=== PATIENT | female | born 1995 | race Caucasian/White ===

== ENCOUNTER → 2019-05-15 15:21 | Outpatient (BNVA) | payer SELFPAY | PROVIDERS: PCP Nurse Practitioner; Visit Provider Nurse Practitioner | DX: Z30.011 Encounter for initial prescription of contraceptive pills (principal) | CPT/HCPCS: 84702 ==

== ENCOUNTER → 2019-05-21 16:42 | Outpatient (BNVA) | payer SELFPAY | PROVIDERS: PCP Nurse Practitioner; Visit Provider Nurse Practitioner | DX: Z30.011 Encounter for initial prescription of contraceptive pills (principal) | CPT/HCPCS: 81025 ==

== ENCOUNTER 2024-06-16 15:15 | Emergency (ER) | payer MEDICAID, SELFPAY ==
[2024-06-16 15:22] VITALS: BP 100/57; PULSE 83; TEMP 36.7; O2SAT 100; BMI 25.1
[2024-06-16 15:46] VITALS: BP 102/57; BP 107/61; BP 109/62; PULSE 83; PULSE 84; PULSE 85
--- NOTE | 2024-06-16 15:47 | ECG_ITS ---
[facility] Test Date: 2024-06-16 Pat Name: Sharyn Granger Department: Room: Gender: Female Food Production Manager: : 1995 Requested By: Ally Pisano Order Number: [id number] Reading MD: MICA LANTIGUA Measurements Intervals [place] Rate: 80 P: 24 TX: 139 QRS: 42 QRSD: 90 T: 50 QT: 355 QTc: 411 Interpretive Statements SINUS RHYTHM POSSIBLE RIGHT VENTRICULAR CONDUCTION DELAY [RSR (QR) IN V1/V2] MODERATE T-WAVE ABNORMALITY, CONSIDER ANTERIOR ISCHEMIA [-0.1+ mV T-WAVE IN V3/V4] No previous ECG available for comparison Electronically Signed On 06-18-2024 23:37:04 KEY RINGER by MICA LANTIGUA [email or web address]
[2024-06-16 16:13] LABS: Basophils # 0.1 10^3/uL (0.0-0.1); Basophils % 0.4 %; Eosinophils % 0.2 %; Hematocrit 38.6 % (36-47); Lymphocytes % 12.1 %; Mean Corpuscular HGB Conc 33.4 g/dL (30-55); Mean Corpuscular Hemoglobin 29.5 pg (27-33); Mean Corpuscular Volume 88.3 fl (85-98); Mean Platelet Volume 10.1 fL (7.4-10.4); Monocytes # 1.2 10^3/uL (0.2-0.9); Neutrophils # 13.42 10^3/uL (1.8-7.7); Nucleated Red Blood Cells % 0 %; Platelet Count 353 10^3/cmm (157-399); Red Blood Count 4.37 10^6/uL (3.85-5.65); Red Cell Distribution Width 12.1 % (12.1-15.1)
--- NOTE | 2024-06-16 16:18 | ED_ITS ---
HPI - Syncope 2 General: Chief Complaint: Syncope Stated Complaint: weakness, 11 weeks Time Seen by Provider: 06/16/24 15:39 History of Present Illness: This patient is a presenting at 11 weeks of with a near syncopal episode. She was having a normal day, and had been standing for about 5 minutes talking with family - when she became pale and felt like she was going to pass out. She sat down in a chair and did not fully pass out, but continued to feel like she was going to pass out for about 5 minutes and then it gradually went away. She still feels kind of weak. She has been feeling lightheaded with standing for about the past week or so. She has not had problems like this with her previous pregnancies. No vaginal bleeding or discharge. No abdominal pain. She has not had any urinary symptoms. She has seen her OB and has had an ultrasound showing an IUP. She had a few weeks of morning sickness and wasn't able to eat much but that has passed and she is eating and drinking okay now. She denies any medical history. No complications with prior pregnancies. Related Data Home Medications ?Medication ?Instructions ?Recorded ?Confirmed ondansetron HCl 8 mg tablet 8 mg PO Q8H PRN Nausea And Vomiting 06/16/24 06/16/24 vitamin with calcium 1 tab PO DAILY 06/16/24 06/16/24 no.72-iron 27 mg-folic acid 1 mg tablet (WesTab Plus) promethazine 25 mg tablet 25 mg PO Q6H PRN Nausea And 06/16/24 06/16/24 Vomiting Allergies Allergy/AdvReac Type Severity Reaction Status Date / Time No Known Allergies Allergy Verified 06/16/24 15:27 PFSH ED 2 PFSH: Social History Smoking and tobacco/nicotine status: never used tobacco/nicotine Second hand smoke exposure: No Alcohol intake: never Substance/Drug Use: never Female Reproductive History: Spontaneous abortions: No Physical Exam 2 Const: COMMON NORMALS: no acute distress, patient oriented x3, no limitations and alert GENERAL APPEARANCE: cooperative and comfortable HENMT: HEAD & SCALP: normal to inspection FACE & SINUS: normal facial exam Eye: GENERAL EYE: appearance normal, both eyes and all related structures Neck/C-Spine: COMMON NORMALS: supple, no meningeal signs and no JVD Chest: COMMONS NORMALS: normal inspection of the chest Resp: COMMON NORMALS: normal respiratory effort, No use of accessory muscles and clear to auscultation bilaterally AUSCULTATION: clear to auscultation bilaterally Cardio: COMMON NORMALS: no JVD, regular rate, regular rhythm and No murmurs present (Cardio) RATE: regular rate RHYTHM: regular rhythm GI: COMMON NORMALS: Normal to inspection, nondistended, normoactive bowel sounds present, Soft to palpation and non-tender INSPECTION: Yes normal to inspection AUSCULTATION: Yes normoactive bowel sounds PALPATION: Yes Soft to palpation Back/Pelvis: COMMON NORMALS: thoracic and lumbar spine normal to inspection Extremity: COMMON NORMALS: normal to inspection Neuro: COMMON NORMALS: patient oriented x3, moves all extremities, no focal motor deficits and no sensory deficits noted SENSORIUM/ORIENTATION: Yes alert MENINGEAL SIGNS: Yes no meningeal signs Psych: COMMON NORMALS: mental status grossly normal, cooperative and normal affect Skin: COMMON NORMALS: no rashes or lesions noted and turgor normal GENERAL SKIN EXAM: no rashes or lesions noted and turgor normal Course 2 Vital Signs: Vital signs: Vital Signs Temperature 98.0 F 06/16/24 15:22 Pulse Rate 89 06/16/24 17:10 Respiratory Rate 16 06/16/24 17:10 Blood Pressure 96/64 06/16/24 17:10 Pulse Oximetry 92 06/16/24 17:10 Oxygen Delivery Me thod Room Air 06/16/24 15:22 MDM - Syncope Medical Decision Making Normal exam - normal EKG. Labs pending. Orthostatics pending. Lab Data 06/16/24 16:05 06/16/24 16:05 Laboratory Results WBC 16.80 10^3/uL (3.29-11.43) H 06/16/24 16:05 RBC 4.37 10^6/uL (3.85-5.65) 06/16/24 16:05 Hgb 12.90 g/dL (11.27-16.99) 06/16/24 16:05 Hct 38.6 % (36-47) 06/16/24 16:05 MCV 88.3 fl (85-98) 06/16/24 16:05 MCH 29.5 pg (27-33) 06/16/24 16:05 MCHC 33.4 g/dL (30-55) 06/16/24 16:05 RDW 12.1 % (12.1-15.1) 06/16/24 16:05 Plt Count 353 10^3/cmm (157-399) 06/16/24 16:05 MPV 10.1 fL (7.4-10.4) 06/16/24 16:05 Neut % (Auto) 80.0 % 06/16/24 16:05 Lymph % (Auto) 12.1 % 06/16/24 16:05 [place] % (Auto) 7.0 % 06/16/24 16:05 Eos % (Auto) 0.2 % 06/16/24 16:05 Baso % (Auto) 0.4 % 06/16/24 16:05 Neut # (Auto) 13.42 10^3/uL (1.8-7.7) H 06/16/24 16:05 Lymph # (Auto) 2.0 10^3/uL (0.8-4.8) 06/16/24 16:05 [place] # (Auto) 1.2 10^3/uL (0.2-0.9) H 06/16/24 16:05 Eos # (Auto) 0.0 10^3/uL (0.0-0.8) 06/16/24 16:05 Baso # (Auto) 0.1 10^3/uL (0.0-0.1) 06/16/24 16:05 Nucleated RBC % (auto) 0 % 06/16/24 16:05 Nucleated RBCs # 0.0 /100WBC 06/16/24 16:05 Sodium 131 mmol/L (136-145) L 06/16/24 16:05 Potassium 3.5 mmol/L (3.5-5.1) 06/16/24 16:05 Chloride 100 mmol/L (98-107) 06/16/24 16:05 Carbon Dioxide 20 mmol/L (22-29) L 06/16/24 16:05 Anion Gap 14.5 (5-19) 06/16/24 16:05 BUN 7 mg/dL (6-20) 06/16/24 16:05 Creatinine 0.5 mg/dL (0.5-0.9) 06/16/24 16:05 GFR Calculation 146.9 mL/min (90-130) H 06/16/24 16:05 Glucose 101 mg/dL (65-115) 06/16/24 16:05 Calculated Osmolality 270 mOsm/kg (285-295) L 06/16/24 16:05 Calcium 8.9 mg/dL (8.5-10.5) 06/16/24 16:05 Total Bilirubin 0.3 mg/dL (0.15-1.2) 06/16/24 16:05 AST 11 U/L (0-32) 06/16/24 16:05 ALT 7 U/L (0-33) 06/16/24 16:05 Alkaline Phosphatase 81 U/L (35-105) 06/16/24 16:05 Total Protein 7.3 g/dL (6.6-8.7) 06/16/24 16:05 Albumin 3.7 g/dL (3.5-5.2) 06/16/24 16:05 Globulin 3.6 g/dL (1.3-4.6) 06/16/24 16:05 Ser , Semi-Qnt 83557.00 mIU/mL 06/16/24 16:05 Urine Color Yellow (Yellow) 06/16/24 16:12 Urine Appearance Clear (CLEAR) 06/16/24 16:12 Urine pH 6.5 (5-7) 06/16/24 16:12 Ur Specific [place] 1.012 (1.005-1.030) 06/16/24 16:12 Urine Protein Trace (Negative) A 06/16/24 16:12 Urine Glucose (UA) Negative (Normal) 06/16/24 16:12 Urine Ketones Trace (Negative) 06/16/24 16:12 Urine Blood Negative (Negative) 06/16/24 16:12 Urine Nitrate Negative (Negative) 06/16/24 16:12 Urine Bilirubin Negative (Negative) 06/16/24 16:12 Urine Urobilinogen 2.0 mg/dL (Negative) H 06/16/24 16:12 Ur Leukocyte Esterase Trace (Negative) A 06/16/24 16:12 Urine RBC 0-4 /hpf (0-2) H 06/16/24 16:12 Urine WBC 5-10 /hpf (0-5) H 06/16/24 16:12 Ur Squamous Epith Cells 0-4 /hpf (0-5) H 06/16/24 16:12 Amorphous Sediment Not Reportable 06/16/24 16:12 Urine Bacteria Trace /hpf (NONE) 06/16/24 16:12 Hyaline Casts 5-10 /lpf H 06/16/24 16:12 No radiology studies performed this visit Discharge Plan Discharge Patient Disposition: Home Clinical Impression: Near syncope, First trimester Condition: Stable Prescriptions: No Action ondansetron HCl 8 mg tablet 8 mg PO Q8H PRN (Reason: Nausea And Vomiting) promethazine 25 mg tablet 25 mg PO Q6H PRN (Reason: Nausea And Vomiting) WesTab Plus 27 mg iron- 1 mg tablet 1 tab PO DAILY Discharge Orders: Discharge ED (Routine); Ordered 06/16/24 Ordered By: Ally Aguiar Referrals: Sofiya Lagunas, MANAGER ROOM [Primary Care Provider] - Discharge Diet: Advance as tolerated Discharge Activity: Limit activity as instructed Patient Instructions: Opioid Safety, Pain Management Activity Restrictions/Additional Instructions: Get up slowly when rising from bed or from a chair. Make sure that you are drinking enough fluids and getting enough good nutrition (protein) in your diet. Follow up with your OB/GYNif symptoms do not improve. Print Language: Maltese Coding Level of Care Code ED Fire Technology Instructor for Jesus Alberto Giordano
[2024-06-16 16:19] LABS: Bilirubin Urine Negative (Negative); Blood Urine Negative (Negative); Glucose Urine UA Negative (Normal); Ketones Urine Trace (Negative); Leukocyte Esterase Urine Trace (Negative); Nitrate Urine Negative (Negative); Protein Urine Trace (Negative); Specific Gravity, Urine 1.012 (1.005-1.030); Urine Appearance Clear (CLEAR); Urine Color Yellow (Yellow); pH Urine 6.5 (5-7)
[2024-06-16 16:29] LABS: Add Urine Microscopic? YES; Bacteria Urine TRACE /hpf; RBC Urine 0-4 /hpf (0-2); Squamous Epithelial Cell Urine 0-4 /hpf (0-5); UA Manual Slide Review YES
[2024-06-16 16:42] LABS: Alanine Aminotransferase 7 U/L (0-33); Albumin Level 3.7 g/dL (3.5-5.2); Alkaline Phosphatase 81 U/L (35-105); Anion Gap 14.5 (5-19); Aspartate Amino Transferase 11 U/L (0-32); Blood Urea Nitrogen 7 mg/dL (6-20); Calcium 8.9 mg/dL (8.5-10.5); Carbon Dioxide 20 mmol/L (22-29); Chloride 100 mmol/L (98-107); Creatinine Clr Calc Pharmacy 139.6563; Globulin 3.6 g/dL (1.3-4.6); Glomerular Filtration Rate 146.9 mL/min (90-130); Glucose 101 mg/dL (65-115); Osmolality Calculated 270 mOsm/kg (285-295); Potassium 3.5 mmol/L (3.5-5.1); Sodium 131 mmol/L (136-145); Total Bilirubin 0.3 mg/dL (0.15-1.2); Total Protein 7.3 g/dL (6.6-8.7)
[2024-06-16 17:10] VITALS: BP 96/64; PULSE 89; RESP 16; O2SAT 92
== END 2024-06-16 17:10 | disposition home or self-care (01) ==
PROVIDERS: Emergency Provider Emergency Medicine; PCP Nurse Practitioner
DX: O26.891 Other specified pregnancy related conditions, first trimester (principal); Z3A.11 11 weeks gestation of pregnancy; R55 Syncope and collapse
CPT/HCPCS: 36415; 80053; 81001; 84702; 85025; 93005; 99284